=== PATIENT | male | born 1965 | race Two or more races ===

== ENCOUNTER → 2025-06-20 | Outpatient (CLI) | payer OTHER, SELFPAY ==
--- NOTE | 2025-06-20 11:00 | XR_ITS ---
Examination: CTA chest with intravenous contrast 2-D reconstructions 3-D reconstructions, vascular Date and time of exam: June 20, 2025, 1321 hours INDICATIONS: Chest pain shortness of breath, clinical diagnosis aortic dissection COMPARISON: 05/2020 CTDI: vol (mGy) 20.1 DLP: (mGycm) 465 Technique: Multiple axial sections of the thorax have been obtained. 3 mm slice thickness, from below the hemidiaphragms to above the apices of the lungs. Mediastinal and lung density settings have been obtained. 2-D sagittal and coronal reconstructions. 3-D angiographic renderings, 3-D volume renderings, 3D post processing, vascular maximum intensity projections obtained. Contrast administered is 60 cc Isovue-300. Low dose protocols were performed. One or more of the following dose reduction techniques were used; automated exposure control, adjustment of the mA and/or KV according to patient size, use of iterative reconstruction technique. Findings: No thoracic aortic aneurysmal dilatation or dissection Pulmonary artery opacification is reduced No mediastinal lymphadenopathy No pneumonia, pulmonary edema or pleural disease Diffuse fatty infiltration throughout the liver no focal liver or splenic lesions No gallstones No pancreatic or adrenal mass No hydronephrosis IMPRESSION: No thoracic aortic aneurysmal dilatation or dissection No pneumonia, pulmonary edema or pleural disease.
== END | disposition home or self-care (01) ==
LOC: SCAT 10:43
PROVIDERS: PCP Internal Medicine
DX: I71.00 Dissection of unspecified site of aorta (principal); R06.02 Shortness of breath; R07.9 Chest pain, unspecified
CPT/HCPCS: 71275; A4649; Q9967